=== PATIENT | male | born 1975 | race Caucasian/White ===

== ENCOUNTER 2021-12-07 13:17 | Inpatient (IN) ==
[2021-12-07 17:10] LABS: Basophils % 0.3 %; Eosinophils # 0.2 K/mcL (0.0-0.6); Eosinophils % 2.3 %; Hematocrit 43.3 % (37.5-50.1); Hemoglobin 14.6 g/dL (12.9-16.9); Immature Granulocytes % 0.4 % (0-4); Lymphocytes # 2.8 K/mcL (0.6-4.6); Lymphocytes % 40.2 %; Mean Corpuscular HGB Conc 33.7 g/dL (31.6-35.5); Mean Platelet Volume 10.7 fL (9.4-12.4); Monocytes # 0.5 K/mcL (0.0-1.3); Monocytes % 7.3 %; Neutrophils # 3.5 K/mcL (1.6-8.9); Platelet Count 183 K/mcL (140-400); Red Blood Count 4.56 M/mcL (4.19-5.50); Red Cell Distribution Width 14.1 % (11.5-14.5); Segmented Neutrophils % 49.5 %
[2021-12-07 17:20] LABS: INR 1.3; Prothrombin Time 14.5 Seconds (9.4-12.1)
[2021-12-07 17:20] LABS: Bacteria,Urine Few per hpf (None-Few); Bilirubin,Urine Negative (Negative); Blood,Urine Negative (Negative); Clarity,Urine Clear (Clear); Color,Urine Light-Yellow (Yellow); Glucose,Urine (UA) Normal (Normal); Ketones,Urine Negative (Negative); Leukocyte Esterase,Urine Negative (Negative); Nitrite,Urine Negative (Negative); PH,Urine 6.5 pH Units (5.0-8.0); Protein,Urine Negative (Neg-Trace); RBC,Urine 0-3 per hpf (0-3); Specific Gravity,Urine 1.009 (1.010-1.025); Urobilinogen,Urine Normal (Normal); WBC,Urine 0-3 per hpf (0-3)
[2021-12-07 17:22] LABS: Activated Partial Thrombo Time 32.9 Seconds (26.0-36.0)
[2021-12-07 17:32] LABS: Alanine Aminotransferase 57 Units/L (7-52); Albumin 3.8 g/dL (3.5-5.7); Albumin/Globulin Ratio 1.8 (1.1-2.2); Alkaline Phosphatase 59 Units/L (34-104); Aspartate Amino Transferase 27 Units/L (13-39); BUN/Creatinine Ratio 16 (6-26); Bilirubin,Direct 0.4 mg/dL (0.0-0.2); Bilirubin,Indirect 1.2 mg/dL (0.0-1.0); Bilirubin,Total 1.6 mg/dL (0.3-1.0); Blood Urea Nitrogen 14 mg/dL (6-20); Calcium 8.6 mg/dL (8.6-10.3); Carbon Dioxide 23 mEq/L (23-29); Chloride 107 mEq/L (98-107); Globulin 2.1 g/dL (2.4-3.5); Glucose 96 mg/dL (70-105); Osmolality,Calculated 284 (280-300); Potassium 4.2 mEq/L (3.5-5.1); Sodium 137 mEq/L (136-145); Total Protein 5.9 g/dL (6.4-8.9)
[2021-12-07 17:44] LABS: Troponin I 0.06 ng/mL (< 0.04)
[2021-12-07] MEDS ORDERED: Furosemide 20 MG/2 ML VIAL IVP ONE (18:08)
[2021-12-07] MEDS ORDERED: Acetaminophen 325 MG TABLET PO PRN (19:07)
[2021-12-07] MEDS ORDERED: *HR* HYDROcodone/Acet 5/325 mg TABLET PO PRN (19:07)
[2021-12-07] MEDS ORDERED: Naloxone 0.4 MG/ML INJ IVP PRN (19:07)
[2021-12-07] MEDS ORDERED: Metoprolol XL (24 HR) Succ 25 MG TAB.ER.24H PO SCH (20:00)
[2021-12-07] MEDS ORDERED: Furosemide 20 MG TABLET PO SCH (20:00)
[2021-12-07] MEDS: Furosemide 20 MG/2 ML VIAL IVP SCH (21:32)
[2021-12-08 00:54] LABS: Hematocrit 45.1 % (37.5-50.1); Mean Corpuscular HGB Conc 33.3 g/dL (31.6-35.5); Mean Corpuscular Hemoglobin 32.2 pg (28.0-33.3); Mean Corpuscular Volume 96.8 fL (83.0-100.0); Mean Platelet Volume 10.6 fL (9.4-12.4); Platelet Count 192 K/mcL (140-400); Red Blood Count 4.66 M/mcL (4.19-5.50); Red Cell Distribution Width 14.4 % (11.5-14.5); White Blood Count 7.9 K/mcL (4.3-11.1)
[2021-12-08 01:13] LABS: BUN/Creatinine Ratio 14 (6-26); Blood Urea Nitrogen 13 mg/dL (6-20); Calcium 8.4 mg/dL (8.6-10.3); Carbon Dioxide 25 mEq/L (23-29); Chloride 108 mEq/L (98-107); Glucose 92 mg/dL (70-105); Magnesium 1.8 mg/dL (1.6-2.6); Osmolality,Calculated 290 (280-300); Potassium 4.3 mEq/L (3.5-5.1); Sodium 140 mEq/L (136-145)
[2021-12-08 05:09] LABS: Adenovirus F 40/41 PCR Not detected (Not detect); C.difficile Toxin A/B Gene PCR Not detected (Not detect); Campylobacter by PCR Not detected (Not detect); Cryptosporidium by PCR Not detected (Not detect); Cyclospora cayetanensis PCR Not detected (Not detect); Entamoeba histolytica PCR Not detected (Not detect); Enteroaggregative E.coli(EAEC) Not detected (Not detect); Enteropathogenic E.coli(EPEC) Not detected (Not detect); Enterotoxigenic E.coli (ETEC) Not detected (Not detect); Giardia lamblia PCR Not detected (Not detect); Plesiomonas shigelloides PCR Not detected (Not detect); Salmonella PCR Not detected (Not detect); Shig/EnteroinvasiveE coli EIEC Not detected (Not detect); Shigalike tox-prod E coli STEC Not detected (Not detect); Vibrio PCR Not detected (Not detect); Vibrio cholerae PCR Not detected (Not detect); Yersinia enterocolitica PCR Not detected (Not detect)
[2021-12-08 05:10] LABS: Astrovirus PCR Not detected (Not detect); Norovirus GI/GII PCR Not detected (Not detect); Rotavirus A PCR Not detected (Not detect); Sapovirus PCR Not detected (Not detect)
[2021-12-08] MEDS: Loratadine 10 MG TABLET PO SCH (07:51)
[2021-12-08] MEDS: Furosemide 20 MG/2 ML VIAL IVP SCH (07:53)
[2021-12-08] MEDS ORDERED: hydrOXYzine pamoate 25 MG CAPSULE PO ONE (09:51)
[2021-12-08] MEDS ORDERED: *HR* Metoprolol 5 MG/5 ML VIAL IVP ONE (11:31)
[2021-12-08] MEDS: *HR* Heparin 5,000 UNIT/ML VIAL SQ SCH (15:20)
[2021-12-08] MEDS ORDERED: *HR* FentaNYL (PF) 100 MCG/2 ML VIAL ONE (15:41)
[2021-12-08] MEDS ORDERED: *HR* Midazolam HCl 2 MG/2 ML VIAL ONE (15:41)
[2021-12-08] MEDS ORDERED: Iopamidol - 370 200 ML INFUS..BTL ONE (15:42)
[2021-12-08] MEDS ORDERED: Nitroglycerin 1,000 MCG/5 ML VIAL IV ONE (15:42)
[2021-12-08] MEDS ORDERED: Heparin 1,000 UNITS/500 mL 500 ML ONE (15:42)
[2021-12-08] MEDS ORDERED: 0.9 % Sodium Chloride 2,000 ML ONE (15:42)
[2021-12-08] MEDS ORDERED: *HR* Heparin 10,000 UNIT/10 ML VIAL ONE (15:42)
[2021-12-08] MEDS ORDERED: *HR* Atropine Sulfate 1 MG/10 ML SYRINGE IVP ONE (16:52)
[2021-12-08] MEDS ORDERED: *HR* Atropine Sulfate 1 MG/10 ML SYRINGE IVP PRN (16:56)
[2021-12-08] MEDS: Metoprolol XL (24 HR) Succ 25 MG TAB.ER.24H PO SCH (18:54)
[2021-12-09] MEDS: *HR* Heparin 5,000 UNIT/ML VIAL SQ SCH ×2 (05:14→17:31)
[2021-12-09 06:12] LABS: BUN/Creatinine Ratio 17 (6-26); Blood Urea Nitrogen 16 mg/dL (6-20); Carbon Dioxide 26 mEq/L (23-29); Chloride 110 mEq/L (98-107); Glucose 101 mg/dL (70-105); Magnesium 2.2 mg/dL (1.6-2.6); Osmolality,Calculated 291 (280-300); Potassium 4.2 mEq/L (3.5-5.1); Sodium 140 mEq/L (136-145)
[2021-12-09] MEDS: Metoprolol XL (24 HR) Succ 25 MG TAB.ER.24H PO SCH ×2 (08:08→20:33)
[2021-12-09] MEDS: Furosemide 20 MG TABLET PO SCH (08:08)
[2021-12-09] MEDS: Loratadine 10 MG TABLET PO SCH (08:11)
[2021-12-09] MEDS: Melatonin 3 MG TABLET PO PRN (20:32)
[2021-12-10] MEDS: *HR* Heparin 5,000 UNIT/ML VIAL SQ SCH ×2 (05:02→18:06)
[2021-12-10 08:16] LABS: Basophils % 0.2 %; Eosinophils # 0.1 K/mcL (0.0-0.6); Eosinophils % 2.1 %; Hematocrit 43.9 % (37.5-50.1); Hemoglobin 14.7 g/dL (12.9-16.9); Immature Granulocytes % 0.5 % (0-4); Lymphocytes # 2.2 K/mcL (0.6-4.6); Lymphocytes % 33.8 %; Mean Corpuscular HGB Conc 33.5 g/dL (31.6-35.5); Mean Corpuscular Hemoglobin 32.4 pg (28.0-33.3); Mean Corpuscular Volume 96.7 fL (83.0-100.0); Mean Platelet Volume 10.9 fL (9.4-12.4); Monocytes # 0.6 K/mcL (0.0-1.3); Monocytes % 8.5 %; Neutrophils # 3.6 K/mcL (1.6-8.9); Platelet Count 206 K/mcL (140-400); Red Blood Count 4.54 M/mcL (4.19-5.50); Red Cell Distribution Width 14.4 % (11.5-14.5); Segmented Neutrophils % 54.9 %; White Blood Count 6.6 K/mcL (4.3-11.1)
[2021-12-10 08:35] LABS: BUN/Creatinine Ratio 18 (6-26); Blood Urea Nitrogen 15 mg/dL (6-20); Calcium 8.2 mg/dL (8.6-10.3); Carbon Dioxide 22 mEq/L (23-29); Chloride 110 mEq/L (98-107); Glucose 103 mg/dL (70-105); Magnesium 2.1 mg/dL (1.6-2.6); Osmolality,Calculated 285 (280-300); Phosphorous 2.3 mg/dL (2.7-4.5); Potassium 4.4 mEq/L (3.5-5.1); Sodium 137 mEq/L (136-145)
[2021-12-10] MEDS: Metoprolol XL (24 HR) Succ 25 MG TAB.ER.24H PO SCH ×2 (08:54→19:58)
[2021-12-10] MEDS: Loratadine 10 MG TABLET PO SCH (08:54)
[2021-12-10] MEDS: Furosemide 20 MG TABLET PO SCH (08:54)
[2021-12-10] MEDS ORDERED: Metoprolol XL (24 HR) Succ 25 MG TAB.ER.24H PO ONE (09:51)
[2021-12-10] MEDS: Melatonin 3 MG TABLET PO PRN (20:01)
[2021-12-11] MEDS: *HR* Heparin 5,000 UNIT/ML VIAL SQ SCH ×2 (04:59→16:30)
[2021-12-11] MEDS: Metoprolol XL (24 HR) Succ 25 MG TAB.ER.24H PO SCH ×2 (08:24→21:36)
[2021-12-11] MEDS: Loratadine 10 MG TABLET PO SCH (08:24)
[2021-12-11] MEDS: Furosemide 20 MG TABLET PO SCH ×2 (08:24→16:30)
[2021-12-11] MEDS: Melatonin 3 MG TABLET PO PRN (21:36)
[2021-12-12] MEDS: *HR* Heparin 5,000 UNIT/ML VIAL SQ SCH (06:01)
[2021-12-12 07:11] VITALS: BP 110/61; PULSE 92; TEMP 97; O2SAT 98
[2021-12-12] MEDS: Metoprolol XL (24 HR) Succ 25 MG TAB.ER.24H PO SCH (07:31)
[2021-12-12] MEDS: Furosemide 20 MG TABLET PO SCH (07:32)
[2021-12-12] MEDS: Loratadine 10 MG TABLET PO SCH (07:32)
[2021-12-12] MEDS ORDERED: Spironolactone 12.5 MG TABLET PO SCH (09:00)
[2021-12-12] MEDS ORDERED: lisinopriL 5 MG TABLET PO SCH (09:00)
== END 2021-12-12 11:12 | disposition home or self-care (01) | DRG 280 ==
LOC: EMEROOARM 13:17 → 3BNU 13:17 → SUATTDRO 18:35 → 3BNU 20:28 → SUATTDRO 12-08 12:55
PROVIDERS: ADMIT Internal Medicine; ATTEND Internal Medicine